=== PATIENT | male | born 1985 | race Caucasian/White ===

== ENCOUNTER → 2024-08-23 | Outpatient (CLI) | payer BC | LOC: M WUC 12:01 | PROVIDERS: ATTEND Nurse Practitioner Family | DX: A15.9 Respiratory tuberculosis unspecified (principal) ==

== ENCOUNTER → 2024-08-29 | Outpatient (CLI) | payer BC ==
[2024-08-29 13:25] LABS: BASO % 0.5 % (0.0-1.0); EOS # 0.4 10^3/uL (0.0-0.5); EOS % 5.5 % (0.0-3.0); HEMATOCRIT 39.9 % (42.0-52.0); HEMOGLOBIN 13.1 g/dl (13.5-17.5); LYMPH # 1.9 10^3/uL (1.5-5.0); LYMPH % 30.5 % (24.0-44.0); MEAN CORPUSCULAR HEMOGLOBIN 27.6 pg (27.0-33.0); MEAN CORPUSCULAR HGB CONC 32.8 g/dl (32.0-36.5); MONO # 0.3 10^3/uL (0.0-0.8); MONO % 4.9 % (2.0-8.0); NEUTROPHILS # 3.7 10^3/uL (1.5-8.5); NEUTROPHILS % 58.3 % (36.0-66.0); PLATELET COUNT, AUTOMATED 311 10^3/uL (150-450); RED BLOOD COUNT 4.75 10^6/uL (4.30-6.10); WHITE BLOOD COUNT 6.3 10^3/uL (4.0-10.0)
[2024-08-29 13:31] LABS: ERYTHROCYTE SEDIMENTATION RATE 39 mm/hr (0-15)
[2024-08-29 13:59] LABS: URIC ACID 7.4 MG/DL (3.7-9.2)
[2024-08-29 14:02] LABS: ALBUMIN 3.8 G/DL (3.2-5.2); ALKALINE PHOSPHATASE 125 U/L (40-129); ALT/SGPT 11 U/L (7.0-40); AST/SGOT 16 U/L (<34); BILIRUBIN,TOTAL 0.3 MG/DL (0.3-1.2); BLOOD UREA NITROGEN 10 MG/DL (9-23); C REACTIVE PROTEIN QUANTITATIV 0.89 MG/DL (<1.0); CALCIUM LEVEL 9.4 MG/DL (8.5-10.1); CARBON DIOXIDE LEVEL 29 MMOL/L (20-31); CHLORIDE LEVEL 102 MMOL/L (98-107); CREATININE FOR GFR 0.69 MG/DL (0.70-1.30); GLOMERULAR FILTRATION RATE > 90.0 (>60); GLUCOSE, FASTING 70 MG/DL (60-100); IRON (FE) 53 UG/DL (65-175); PERCENT SATURATION 13.7 % (19.7-50.0); POTASSIUM SERUM 4.3 MMOL/L (3.5-5.1); SODIUM LEVEL 139 MMOL/L (136-145); TOTAL IRON BINDING CAPACITY 386 UG/DL (250-425); TOTAL PROTEIN 7.5 G/DL (5.7-8.2)
[2024-08-29 14:03] LABS: FREE T4 1.14 NG/DL (0.89-1.76); RHEUMATOID FACTOR QUANT < 3.5 IU/ML (<14); THYROID STIMULATING HORMONE 2.598 uIU/ML (0.55-4.78)
[2024-08-29 14:04] LABS: FOLATE > 24.0 NG/ML (>5.4); VITAMIN B12 LEVEL 733 PG/ML (211-911)
[2024-08-30 16:44] LABS: ANA SCREEN, IFA NEGATIVE (NEGATIVE)
== END ==
LOC: M WUC 10:25
DX: E03.9 Hypothyroidism, unspecified (principal); D64.9 Anemia, unspecified; M06.9 Rheumatoid arthritis, unspecified